=== PATIENT | male | born 1930 | race Caucasian/White ===

== ENCOUNTER 2016-07-15 16:33 | Observation (INO) | payer MEDICARE ==
[2016-07-15 17:59] LABS: ABSOLUTE NEUTROPHIL COUNT 11.7 K/mm3 (1.8-7.7); BASO % 0.2 % (0.2-1.0); EOS % 0.1 % (0.9-2.9); HEMATOCRIT 39.9 % (32.0-52.0); HEMOGLOBIN 13.2 gm/l (14.0-18.0); IMM NEUT # 0.1 K/mm3 (0-0.2); IMM NEUT% 0.5 % (0-1); LYMPH # 0.5 (1.0-4.8); LYMPH % 3.5 % (15-45); MEAN CELL VOLUME 94.5 fl (80.0-94.0); MEAN CORPUSCULAR HEMOGLOBIN 31.3 pg (27.0-31.0); MEAN CORPUSCULAR HGB CONC 33.1 g/dl (33.0-37.0); MEAN PLATELET VOLUME 10.4 fl (7.4-10.4); MONO % 7.3 % (4-12); NEUT % 88.4 % (43-75); PLATELET COUNT 129 K/mm3 (130-400)
[2016-07-15 18:06] LABS: URINE BILIRUBIN NEGATIVE (NEGATIVE); URINE BLOOD 1+ (NEGATIVE); URINE GLUCOSE (UA) NEGATIVE (NEGATIVE); URINE LEUKOCYTE ESTERASE NEGATIVE (NEGATIVE); URINE NITRITE POSITIVE (NEGATIVE); URINE PROTEIN 2+ (NEGATIVE); URINE UROBILINOGEN NORMAL (0-1 mg/dl)
[2016-07-15 18:07] LABS: URINE APPEARANCE CLEAR; URINE COLOR YELLOW
[2016-07-15 18:10] LABS: ALB/GLOB RATIO 1.2 (>1.0); ALBUMIN 3.8 gm/dL (3.5-5.7); CALCIUM 9.2 mg/dL (8.6-10.3)
[2016-07-15 18:15] LABS: TROPONIN I < 0.01 ng/ml (0.0-0.06)
[2016-07-15 18:16] LABS: URINE BACTERIA 1+; URINE EPITHELIAL CELLS 0 /hpf
--- NOTE | 2016-07-15 18:48 | RAD ---
CHEST-AP BEDSIDE COMPARISON: Chest 2 views, 06/14/2016 HISTORY: Weakness and fever. FINDINGS: Views: Frontal chest. Lungs: Low normal volume. Crowding of the vessels and interstitial markings. No infiltrate. Heart and vessels: Enlarged borders from portable technique. Trachea and bronchi: Normal Mediastinum and isabell: Normal Costophrenic sulci: Normal Chest wall and bones: No acute finding. Degenerative changes at the right shoulder. Upper abdomen: Normal. IMPRESSION: No acute finding. Low normal lung volume.
[2016-07-15] MEDS ORDERED: SODIUM CHLORIDE 0.9% 1,000 ML ONE (18:58)
[2016-07-15] MEDS ORDERED: CEFTRIAXONE 1 GRAM DUPLEX 50 ML IV ONE (18:59)
[2016-07-15] MEDS ORDERED: ALBUTEROL/IPRATROPIUM 2.5/0.5 MG 3 ML/EACH DOSE ONE (19:17)
[2016-07-15 21:23] VITALS: BMI 36.0
[2016-07-15] MEDS ORDERED: MAGNESIUM HYDROXIDE 30 ML UDCUP PO PRN (22:52)
[2016-07-15] MEDS ORDERED: BLISTEX LIPSTICK 1 EACH TP PRN (22:52)
[2016-07-15] MEDS ORDERED: BISACODYL 10 MG SUP PR PRN (22:52)
[2016-07-15] MEDS ORDERED: BISACODYL 5 MG TABLET.EC PO PRN (22:52)
[2016-07-15] MEDS ORDERED: SODIUM CHLORIDE 0.9% 100 ML IV PRN (22:52)
[2016-07-15] MEDS ORDERED: ACETAMINOPHEN 325 MG TABLET PO PRN (22:52)
[2016-07-15] MEDS ORDERED: MENTHOL/CETYLPYRD 1 EACH LOZENGE PO PRN (22:52)
[2016-07-15] MEDS ORDERED: ONDANSETRON 4 MG/2ML 2 ML VIAL IV PRN (22:55)
[2016-07-15] MEDS ORDERED: ENOXAPARIN SODIUM 40 MG/0.4 ML SYRINGE SUB-Q SCH (23:00)
[2016-07-16] MEDS ORDERED: PUMP TUBING ONE (00:22)
[2016-07-16] MEDS: SODIUM CHLORIDE 0.9% 1,000 ML IV SCH ×2 (00:36→08:42)
[2016-07-16 05:49] LABS: HEMATOCRIT 35.3 % (32.0-52.0); HEMOGLOBIN 11.8 gm/l (14.0-18.0); MEAN CELL VOLUME 94.1 fl (80.0-94.0); MEAN CORPUSCULAR HEMOGLOBIN 31.5 pg (27.0-31.0); MEAN CORPUSCULAR HGB CONC 33.4 g/dl (33.0-37.0); RED CELL DISTRIBUTION WIDTH 13.1 % (11.5-14.5)
[2016-07-16 06:11] LABS: ALB/GLOB RATIO 1.2 (>1.0); ALBUMIN 3.1 gm/dL (3.5-5.7); CALCIUM 8.2 mg/dL (8.6-10.3)
--- NOTE | 2016-07-16 07:53 | HP ---
Maxi Vu ADMIT DATE: 07/15/2016 CHIEF COMPLAINT: Weakness. 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 He has had recurrent urinary tract infections over the last several years. Today he was at home when he had onset of weakness. He actually slipped to the floor. He did not loss of consciousness, but he was so weak he required assistance to get back up. He had a fever up to 102 by report at home. He was finally brought to the emergency room for evaluation. In the emergency room he was found to have a urinary tract infection, but no evidence of sepsis. He was treated with IV fluids and is still quite weak, so it was elected to admit him to the hospitalist service. REVIEW OF SYSTEMS: No headache, no visual disturbance, no difficulty swallowing, no chest pain, no shortness of breath, no cough, no nausea, vomiting, or diarrhea. He does have some weakness. No dysuria, though he does have his indwelling Sparks. No new extremity weakness, numbness, tingling, or swelling. PAST MEDICAL HISTORY: 1. Prostate cancer diagnosed 05/31. He does have bladder outlet obstruction related to this and he has a chronic indwelling Sparks. 2. Mild asthma. 3. Coronary artery disease with a history of stents back in 2004 and 2011, followed by Dr. Gambino. 4. Hypertension. 5. Remote history of a stroke without residual deficits. 6. Mild cognitive impairment, not otherwise specified. 7. Hyperlipidemia. CURRENT MEDICATIONS: 1. Symbicort 160/4.5 two puffs inhaled twice daily. 2. Hydrochlorothiazide 12.5 mg by mouth daily. 3. Aspirin 81 mg by mouth daily. 4. Albuterol MDI as needed. 5. Magnesium 250 by mouth daily. 6. Lisinopril 40 mg by mouth daily. 7. Doxazosin 8 mg by mouth daily. 8. Lipitor 40 mg by mouth daily. 9. Singulair 10 mg by mouth daily. SOCIAL HISTORY: He lives at home with his . He has daughters in the [place] area. He is retired from the [employer]. FAMILY HISTORY: Unknown. OBJECTIVE: VITAL SIGNS: Temperature 99.0, pulse is 84, blood pressure 122/66, respirations 24, O2 sat 94% on room air. GENERAL: Well-developed, well-nourished elderly male. He is alert, calm, and pleasant in no distress what so ever. HEENT: Benign. Normocephalic, atraumatic. NECK: Supple, no jugular venous distention. LUNGS: Clear. No wheezes, rales, or rhonchi. HEART: Regular rate and rhythm. No murmur, rubs, or gallops. ABDOMEN: Soft, nontender, nondistended. No rebound or guarding. EXTREMITIES: No edema. LABORATORY: CBC with a white count of 13.3, hemoglobin 13.2, hematocrit 39.9, platelets of 129. Chemistry panel, sodium 136, potassium 3.6, chloride 101, carbon dioxide 32, BUN 17, creatinine 0.8, glucose of 127, total bilirubin 0.8, AST 16, ALT 19, alk phos 97. Troponin less than 0.01. Lactate of 1.3. Urinalysis was 2+ protein, 1+ blood, positive nitrites, 1+ bacteria. Cultures were pending. DIAGNOSTICS: Chest x-ray normal cardiac silhouette with no infiltrates or effusions. ASSESSMENT: 1. Urinary tract infection. 2. Weakness secondary to above. 3. Multiple other medical problems at baseline. PLAN: He is admitted to the floor and will treat with IV Rocephin as well as supportive care. We will continue with most of his regular medications. Will have physical therapy and occupational therapy evaluate him in the morning. Lovenox for deep venous thrombosis prophylaxis. Further care is dictated by clinic course. JOB: [id number]
[2016-07-16] MEDS ORDERED: ATORVASTATIN CALCIUM 40 MG TABLET PO SCH (09:00)
[2016-07-16] MEDS ORDERED: LISINOPRIL 20 MG TABLET PO SCH (09:00)
[2016-07-16] MEDS ORDERED: BUDESONIDE/FORMOTEROL 160/4.5 60 PUFFS/6 G INHALER IH SCH (09:00)
[2016-07-16] MEDS ORDERED: ASPIRIN (ENTERIC COATED) 81 MG TABLET.EC PO SCH (09:00)
[2016-07-16] MEDS ORDERED: HYDROCHLOROTHIAZIDE 12.5 MG CAP PO SCH (09:00)
[2016-07-16] MEDS ORDERED: DOXAZOSIN MESYLATE 2 MG TABLET PO SCH (09:00)
[2016-07-16] MEDS ORDERED: MONTELUKAST SODIUM 10 MG TABLET PO SCH (09:00)
[2016-07-16 11:30] VITALS: BP 133/68
--- NOTE | 2016-07-16 12:17 | DS ---
Maxi Vu ADMIT DATE: 07/15/2016 DISCHARGE DATE: 07/16/2016 ADMIT DIAGNOSES: 1. Urinary tract infection present on admission complicated by a chronic indwelling Sparks. 2. Weakness secondary to above. 3. Multiple other chronic medical problems at baseline including stable coronary artery disease, hypertension, mild cognitive impairment, mild asthma, and a history of prostate cancer with bladder outlet obstruction. necessitating his indwelling Sparks. DISCHARGE DIAGNOSES: 1. Urinary tract infection present on admission complicated by a chronic indwelling Sparks. 2. Weakness secondary to above. 3. Multiple other chronic medical problems at baseline including stable coronary artery disease, hypertension, mild cognitive impairment, mild asthma, and a history of prostate cancer with bladder outlet obstruction. necessitating his indwelling Sparks. ADMIT HISTORY AND PHYSICAL: Please see my dictated note for details. Briefly, Maxi is an 86-year-old male who has had some issues with recurrent bladder infections complicated by his chronic indwelling Sparks. On the day of admission he had an episode where he felt weak as well as having a fever up to 102 at home. He did not actually lose consciousness. He was brought to the emergency room for evaluation and found to have a urinary tract infection and to be too weak to ambulate to go home. He was referred to observation to the hospitalist service. HOSPITAL COURSE: Urine cultures were drawn. He was admitted and treated supportively and started on Rocephin. On the morning of discharge he was feeling significantly better and very anxious to go home. Urine culture results are not back yet. I have reviewed culture results in the past. He primarily has grown out E-coli susceptible to most antibiotics. He did have a urine culture from several weeks ago that showed pseudomonas, but it was in very low numbers and was felt to be contaminated and not an actual pathogen. Given his markedly good response to Rocephin, I suspect that he does not actually have a multidrug resistant pseudomonas as an etiology of his bladder infection. I am therefore going to send him home on Cipro. I have arranged close outpatient follow up with Dr. Bolaños on Tuesday to review his culture results and to have a recheck. If he is having increasing symptoms he will follow up sooner. DISCHARGE MEDICATIONS: Cipro 500 mg by mouth twice daily x7 days. All other medications as prior to admit as follows: 1. Albuterol MDI every 4 hours as needed. 2. Aspirin 81 mg by mouth daily. 3. Lipitor 40 mg by mouth daily. 4. Symbicort 160/4.5 two puffs inhaled twice daily. 5. Doxazosin 8 mg by mouth daily. 6. Hydrochlorothiazide 12.5 mg by mouth daily. 7. Lisinopril 40 mg by mouth daily. 8. Magnesium 250 by mouth daily. 9. Singulair 10 mg by mouth daily. DISCHARGE FOLLOW UP: With Dr. Erica Bolaños on 07/20/2016 as scheduled. JOB: [id number] CC: Dr. Erica Bolaños
[2016-07-16] MEDS ORDERED: CEFTRIAXONE 1 GRAM DUPLEX 1 G in Premix (D5W) 50 ml 1 EACH IV SCH (18:00)
== END 2016-07-16 14:50 | disposition home or self-care (01) ==
LOC: ED 16:33 → INTOOBSV 20:22 → MS 20:22
PROVIDERS: ADMIT Family Medicine; ATTEND Family Medicine
DX: T83.518A Infection and inflammatory reaction due to other urinary catheter, initial encounter (principal); R40.2411 Glasgow coma scale score 13-15, in the field [EMT or ambulance]; C61 Malignant neoplasm of prostate; J45.909 Unspecified asthma, uncomplicated; I25.10 Atherosclerotic heart disease of native coronary artery without angina pectoris; Z98.61 Coronary angioplasty status; Z87.891 Personal history of nicotine dependence; Z86.73 Personal history of transient ischemic attack (TIA), and cerebral infarction without residual deficits; E78.5 Hyperlipidemia, unspecified; G31.84 Mild cognitive impairment of uncertain or unknown etiology; Y84.9 Medical procedure, unspecified as the cause of abnormal reaction of the patient, or of later complication, without mention of misadventure at the time of the procedure; N13.9 Obstructive and reflux uropathy, unspecified
CPT/HCPCS: 83605; 85027; 85025; 82553; 87040; 87086; 80053 ×2; 87186 ×2; 84484; 81001; 87077; 36415; 71010; 94640; 97161; 97165; 99285 ×2; 96365; 93005; 96372; A9270 ×6; J1650; J7030 ×3; J0696; G0378 ×2